=== PATIENT | male | born 1980 | race Two or more races ===

== ENCOUNTER 2017-11-16 05:38 | Inpatient (IN) | payer OTHER ==
--- NOTE | 2017-11-03 14:01 | Diagnostic Imaging Report ---
Indication: Cough Technique: 2 views of the chest Comparison: None Findings: Lungs and pleural spaces are clear. The heart size is normal. The bones are unremarkable. No significant interim change. Impression: Negative
[2017-11-03 14:02] LABS: BASOPHILS % (AUTO) 1.5 % (0.0-2.0); EOSINOPHILS % (AUTO) 4.7 % (0.0-3.0); HEMATOCRIT 50.2 % (42.0-52.0); HEMOGLOBIN 17.1 G/DL (14.2-18.0); LYMPHOCYTES % (AUTO) 43.7 % (20.0-45.0); MEAN CORPUSCULAR VOLUME 86 FL (80-99); MONOCYTES % (AUTO) 6.2 % (1.0-10.0); NEUTROPHILS % (AUTO) 43.9 % (45.0-75.0); PLATELET COUNT 222 K/UL (150-450); RED BLOOD COUNT 5.81 M/UL (4.70-6.10); RED CELL DISTRIBUTION WIDTH 10.8 % (11.6-14.8); WHITE BLOOD COUNT 5.5 K/UL (4.8-10.8)
[2017-11-03 14:28] LABS: BILIRUBIN, URINE NEGATIVE (NEGATIVE); GLUCOSE, URINE (UA) NEGATIVE (NEGATIVE); KETONES,URINE NEGATIVE (NEGATIVE); LEUKOCYTE ESTERASE ,URINE NEGATIVE (NEGATIVE); NITRITE,URINE NEGATIVE (NEGATIVE); PH,URINE 6 (4.5-8.0); PROTEIN,URINE NEGATIVE (NEGATIVE); UROBILINOGEN,URINE NORMAL MG/DL (0.0-1.0)
[2017-11-03 14:29] LABS: APPEARANCE,URINE SLIGHTLY CLOUDY; COLOR,URINE YELLOW
[2017-11-03 14:35] LABS: ALANINE AMINOTRANSFERASE 44 U/L (12-78); ALBUMIN 4.3 G/DL (3.4-5.0); ALBUMIN/GLOBULIN RATIO 1.1 (1.0-2.7); ALKALINE PHOSPHATASE 86 U/L (46-116); ANION GAP 9 mmol/L (5-15); ASPARTATE AMINO TRANSFERASE 25 U/L (15-37); BLOOD UREA NITROGEN 12 mg/dL (7-18); CALCIUM 9.4 MG/DL (8.5-10.1); CARBON DIOXIDE 29 MMOL/L (21-32); CHLORIDE 101 MMOL/L (98-107); CREATININE 0.8 MG/DL (0.55-1.30); POTASSIUM 3.9 MMOL/L (3.5-5.1); SODIUM 139 MMOL/L (136-145)
[~2017-11-16] VITALS: Ht 175.3 cm; Wt 93.0 kg
[2017-11-16] VITALS (13 sets, daily range): BP systolic 107–126; BP diastolic 61–91
[~2017-11-16 05:38] MED LIST: NKM
[2017-11-16] MEDS ORDERED: ceFAZolin sod 2 GM in D5W 110 ML IVPB SCH (07:00)
[2017-11-16] MEDS ORDERED: Lidocaine 1% 10mg/ml/EPI 0.01mg/ml 50ml INJ ONE (09:09)
[2017-11-16] MEDS ORDERED: Bupivacaine 0.5% Inj 30 ml vial INJ ONE (09:09)
[2017-11-16] MEDS ORDERED: Thrombin 5000 units TOPIC ONE (09:09)
[2017-11-16] MEDS ORDERED: Vancomycin 1gm inj IVPB ONE (09:10)
[2017-11-16] MEDS ORDERED: Gelfoam Absorbable 1gm powder pkt TOPIC ONE (09:10)
[2017-11-16] MEDS ORDERED: Thrombin 5000 units spray kit TOPIC ONE (09:10)
[2017-11-16] MEDS ORDERED: Bacitracin 50000 Units Vial ONE (09:10)
--- NOTE | 2017-11-16 09:11 | Pre-Procedure Note/Attestation ---
Pre-Procedure Note/Attestation Complete Prior to Procedure Procedure Narrative: L45 laminectomy/discectomy Indications for Procedure Pre-Operative Diagnosis: L45 HNP with radiculopathy Attestation I attest that I discussed the nature of the procedure; its benefits; risks and complications; and alternatives (and the risks and benefits of such alternatives ), prior to the procedure, with the patient (or the patient's legal assisted sales representative). I attest that, if there was a reasonable possibility of needing a blood transfusion, the patient (or the patient's legal assisted sales representative) was given the [facility] standardized written summary, pursuant to the Walt Radha Blood Safety Act ([place] Health and Safety Code # 1645, as amended). I attest that I re-evaluated the patient just prior to the surgery and that there has been no change in the patient's H&P, except as documented below: ALEXI SANABRIA Nov 16, 2017 09:11
--- NOTE | 2017-11-16 09:13 | Brief Operative Note ---
Immediate Post Operative Note Operative Note Pre-op Diagnosis: L45 HNP with radiculopathy Procedure: L45 laminectomy and discectomy Post-op Diagnosis: same as pre-op Surgeon: abhinav Club Room Attendant: faustina canas Anesthesiologist: ck Anesthesia: general Specimen: yes - disc Complications: none Condition: stable Fluids: 800 Estimated Blood Loss: minimal Drains: none Implant(s) used?: No ALEXI SANABRIA Nov 16, 2017 09:13
[2017-11-16] MEDS ORDERED: EPINEPHrine 1mg/1ml Amp ONE (09:52)
[2017-11-16] MEDS ORDERED: NS Irrig 1000ml ONE (10:00)
[2017-11-16] MEDS ORDERED: Midazolam 2mg/2ml Inj ONE (10:00)
[2017-11-16] MEDS ORDERED: Propofol 1,000mg/ 100ml btl IV ONE (10:00)
[2017-11-16] MEDS ORDERED: Zemuron 50mg/5ml Inj IV ONE (10:00)
[2017-11-16] MEDS ORDERED: Labetalol 5mg/ml 20ml vial IV ONE (10:00)
[2017-11-16] MEDS ORDERED: fentaNYL 100 mcg/2 mL IV ONE (10:00)
[2017-11-16] MEDS ORDERED: LR 1000ml ONE (10:00)
[2017-11-16] MEDS ORDERED: Sodium Chloride 10ml vial INJ ONE (10:00)
[2017-11-16] MEDS ORDERED: Sterile Water Irrig 1000ml IRRIG ONE (10:00)
[2017-11-16] MEDS ORDERED: LR 1000ml 1,000 ML IVLG SCH (11:30)
[2017-11-16] MEDS ORDERED: LORazepam Inj 2mg/ml 1ml IV PRN (11:30)
[2017-11-16] MEDS ORDERED: DiphenhydrAMINE 50mg/ml Inj IVP PRN (11:30)
[2017-11-16] MEDS ORDERED: LR 1000ml 1,000 ML IV SCH (11:30)
--- NOTE | 2017-11-16 11:38 | Anethesia Preoperative Eval ---
Anesthesia Pre-op PMH/ROS General Date of Evaluation: Nov 16, 2017 Time of Evaluation: 09:50 Anesthesiologist: Sai ASA Score: ASA 1 Mallampati Score Class I : Soft palate, uvula, fauces, pillars visible Class II: Soft palate, uvula, fauces visible Class III: Soft palate, base of uvula visible Class IV: Only hard plate visible Mallampati Classification: Class III Surgeon: Shanon Diagnosis: Disc displacement Surgical Procedure: Discectomy, laminectomy Allergies: Coded Allergies: No Known Allergies (Unverified , 11/15/17) Medications: see eMAR Past Medical History Cardiovascular: Denies: HTN, CAD, PA, valve dz, arrhythmia, other Pulmonary: Denies: asthma, COPD, GIANNI, other Gastrointestinal/Genitourinary: Denies: GERD, CRI, ESRD, other Neurologic/Psychiatric: Denies: dementia, CVA, depression/anxiety, TIA, other Endocrine: Denies: DM, hypothyroidism, steroids, other HEENT: Denies: cataract (L), cataract (R), glaucoma, [place] (L), [place] (R), other Hematology/Immune: Denies: anemia, DVT, bleeding disorder, other Musculoskeletal/Integumentary: Denies: OA, RA, DJD, DDD, edema, other PMH Narrative: Denies significant PMH PSxH Narrative: No prior surgery. Patient had several epidural steroid injections Anesthesia Pre-op Phys. Exam Physician Exam Last Vital Signs Date Time Temp Pulse Resp B/P (MAP) Pulse Ox O2 Delivery O2 Flow Rate FiO2 11/16/17 06:10 98.0 73 18 125/91 97 Room Air 98.0 Constitutional: NAD Neurologic: CN 2-12 intact Cardiovascular: RRR, no M/R/G Respiratory: CTA Gastrointestinal: S/NT/ND Airway Exam Mallampati Score: Class III MO: full ROM: full Teeth: intact Anesthesia Pre-op A/P Labs WNL Studies Pre-op Studies: EKG - NSR Risk Assessment & Plan Assessment: Healthy male for laminectomy Plan: GETA, SedLine Status Change Before Surgery: Yes Pre-Antibiotics Drug: Ancef Given Within 1 Hr of Incision: Yes Time Given: 10:15 MAGAN PAZ M.D. Nov 16, 2017 11:38
--- NOTE | 2017-11-16 11:39 | Immediate Post-Op Evaluation ---
Immediate Post-Op Evalulation Immediate Post-Op Evalulation Procedure: Laminectomy, discectomy Date of Evaluation: Nov 16, 2017 Time of Evaluation: 12:40 IV Fluids: 900 Estimated Blood Loss: 30 Blood Pressure Systolic: 124 Blood Pressure Diastolic: 73 Pulse Rate: 94 Respiratory Rate: 14 O2 Sat by Pulse Oximetry: 100 Temperature (Fahrenheit): 98.9 Pain Score (1-10): 0 Nausea: No Vomiting: No Complications No complication Patient Status: awake, patent, extubated, none Hydration Status: adequate Drug: Ancef Given Within 1 Hr of Incision: Yes Time Given: 10:15 MGAAN PAZ M.D. Nov 16, 2017 11:39
[2017-11-16] MEDS ORDERED: Meperidine 50mg/ml Inj(FOR RIGORS ONLY) IVP ONE (11:54)
[2017-11-16] MEDS ORDERED: Milk of Magnesia 30ml Ud ORAL PRN (12:00)
[2017-11-16] MEDS ORDERED: Naloxone 0.4mg/ml Inj IVP PRN (12:00)
[2017-11-16] MEDS: Hydromorphone 0.5mg/0.5ml inj IVP PRN ×2 (13:09→13:24)
--- NOTE | 2017-11-16 14:24 | Diagnostic Imaging Report ---
Indication: Right lower extremity greater than left lower extremity pain, back pain, intraoperative Technique: Intraoperative images Comparison: none Findings: Single intraoperative image demonstrates a surgical tool projecting posterior to the L5 vertebral body Impression: Intraoperative imaging, as described
[2017-11-16] MEDS ORDERED: HYDROmorphone 1mg/ml Carpuject SUBQ PRN (14:39)
[2017-11-16] MEDS ORDERED: Norco 5mg/325mg tab ORAL PRN (14:40)
[2017-11-16] MEDS ORDERED: HYDROcodone/Acetamin 7.5/325 tab ORAL PRN ×2 (14:40)
[2017-11-16] MEDS: D5 1/2NS 1,000 ML IV SCH ×2 (14:44→23:45)
[2017-11-16] MEDS: ceFAZolin sod 1 GM in NS 55 ML IV SCH (17:53)
[2017-11-16] MEDS: Docusate 100mg cap ORAL SCH (18:00)
--- NOTE | 2017-11-16 18:45 | Operative Note - Dictated ---
DATE OF OPERATION: 11/16/2017 SURGEON: Guero Claudio M.D. ANIMAL CONTROL SUPERVISOR: Lino Weller PA-C. ANESTHESIA: Walt Gibbs M.D. ANESTHESIA TYPE: General endotracheal anesthesia. PREOPERATIVE DIAGNOSIS: L4-L5 central disc herniation with bilateral right worse than left radiculopathic complaints. POSTOPERATIVE DIAGNOSIS: L4-L5 central disc herniation with bilateral right worse than left radiculopathic complaints. PROCEDURE: 1. Bilateral hemilaminectomy, medial facetectomy and discectomy at L4-L5. 2. Use of operating microscope. 3. Neurodiagnostic monitoring. ESTIMATED BLOOD LOSS: Minimal. COMPLICATIONS: None. FLUIDS: 800 mL. FINDINGS: Scar formation in the epidural space with extensive neovascularization on the right side at L4-L5. INDICATIONS: The patient is a very pleasant gentleman, sustained a work-related injury, injuring his L4-L5 level with a subligamentous rupture with bilateral lower extremity radiculopathic complaints. Initially, pain was equally on the left and right, however, now it is primarily on the right side. Surgical intervention was recommended after conservative care failed. RISK NOTE: The patient was explained in detail the risks and benefits of surgery to include, but not be limited to, those of bleeding, infection, damage to nerves, vessels, tendons, anesthetic risk, allergic reaction, aspiration, and possibly . Potential risk for discogenic collapse and need for additional surgery was discussed. The patient understood and wished to proceed. OPERATIVE PROCEDURE IN DETAIL: The patient was taken to the operative suite. After general endotracheal anesthesia was obtained, he was turned prone onto a radiolucent frame. The back was prepped and draped in usual sterile fashion. Under fluoroscopic guidance, the L4-L5 level was identified. The skin was infiltrated with Marcaine with epinephrine. A midline incision was carried out from L4-L5 level. Subperiosteal dissection was carried out. Fluoroscopically, the level was once again confirmed. At this point, self-retaining retractors were put into place. The laminotomy was then performed, first on the left and subsequently on the right with use of a rongeur as well as high-speed drill and Kerrison punches. The right side was packed off, left side was first addressed. The ligamentum flavum was undermined, elevated, and removed in a piecemeal fashion with a Kerrison rongeur. The nerve root was identified and gently retracted medially. Disc space was identified and a protrusion was identified. This was incised using a 15-blade. Then, with down pushing as well as straight and angled pituitaries, debulking of the disc herniation was achieved. Subligamentous herniation was identified and removed. Multiple passes with the pituitary removed all loose disc fragments. At this point, intradiscal irrigation removed loose debris from within the disc. This area was then packed off. Attention was turned to the right side and in an identical fashion, hemilaminectomy was performed. Ligamentum flavum removal was performed and discectomy was performed. On the right side, it should be noted that there was neovascularization as well as extensive scarring along the area of the disc herniation centrally. This was mobilized and neurolysis was achieved. At this point, the discectomy was performed identical to the contralateral side. Copious intradiscal irrigation was performed and debulking of loose disc fragments from within the disc bilaterally. At this point, we were satisfied with the decompression. Decision was made to close. FloSeal was applied. Hemostasis was achieved. The closure was performed using #1 Vicryl, subcutaneous closure using 2-0 Vicryl, Dermabond and sterile dressing were applied. At the time of this dictation, the patient was awaiting extubation. Guero Claudio M.D. DR: MAIRA JOB#: [id number] CC:
--- NOTE | 2017-11-16 18:58 | Internal Med Progress Note ---
Subjective Date of Service: Nov 16, 2017 Physician Name López,Alexandria Attending Physician Guero Claudio Current Medications Medications (Trade) Dose Ordered Sig/Venkatesh Route PRN Reason Start Time Stop Time Status Last Admin Dose Admin Acetaminophen (Tylenol) 650 mg Q4H PRN ORAL headache or temp>101 11/16/17 14:37 12/16/17 14:36 Acetaminophen/ Hydrocodone Bitart ([place] 5/325) 1 tab Q3H PRN ORAL pain score 1-3 11/16/17 14:40 11/23/17 14:39 Acetaminophen/ Hydrocodone Bitart ([place] 7.5/325) 1 tab Q3H PRN ORAL pain score 4-6 11/16/17 14:40 11/23/17 14:39 Acetaminophen/ Hydrocodone Bitart ([place] 7.5/325) 2 tab Q3H PRN ORAL pain scale 7-10 11/16/17 14:40 11/23/17 14:39 Cefazolin Sodium 1 gm/Sodium Chloride 55 ml @ 110 mls/hr Q8H IV 11/16/17 18:15 11/17/17 10:44 11/16/17 17:53 Dextrose/Sodium Chloride 1,000 ml @ 100 mls/hr Q10H IV 11/16/17 14:37 12/16/17 14:36 11/16/17 14:44 Docusate Sodium (Colace) 100 mg TWICE A DAY ORAL 11/16/17 18:00 12/16/17 17:59 Hydromorphone HCl (Dilaudid) 1 mg Q4H PRN SUBQ Mild Pain (Pain Scale 1-3) 11/16/17 14:39 11/23/17 14:38 Hydromorphone HCl (Dilaudid) 2 mg Q3H PRN SUBQ Severe Pain (Pain Scale 7-10) 11/16/17 12:00 11/23/17 11:59 11/16/17 15:09 Hydromorphone HCl (Dilaudid) 2 mg Q4H PRN SUBQ Moderate Pain (Pain Scale 4-6) 11/16/17 14:39 11/23/17 14:38 Magnesium Hydroxide (Mom) 30 ml QIDPRN PRN ORAL Constipation 11/16/17 12:00 12/16/17 11:59 Naloxone HCl (Narcan) 0.1 mg PRN PRN IVP RR<12/min, pt unarousable 11/16/17 12:00 12/16/17 11:59 Ondansetron HCl (Zofran) 4 mg Q6H PRN IVP Nausea & Vomiting 11/16/17 12:00 12/16/17 11:59 11/16/17 15:38 Prochlorperazine (Compazine) 10 mg Q6H PRN IVP Nausea & Vomiting 11/16/17 12:00 12/16/17 11:59 Allergies: Coded Allergies: No Known Allergies (Unverified , 11/15/17) ROS Limited/Unobtainable: No Constitutional: Reports: no symptoms HEENT: Reports: no symptoms Cardiovascular: Reports: no symptoms Respiratory: Reports: no symptoms Gastrointestinal/Abdominal: Reports: no symptoms Genitourinary: Reports: no symptoms Neurologic/Psychiatric: Reports: no symptoms Subjective 36 YO M admitted with herniated lumbar disc. S/P L4-5 laminectomy 11/16/18. Cover for Int Med-Dr German Objective Last Vital Signs Date Time Temp Pulse Resp B/P (MAP) Pulse Ox O2 Delivery O2 Flow Rate FiO2 11/16/17 16:00 97.6 85 19 122/76 98 Nasal Cannula 2.0 97.6 General Appearance: WD/WN, no apparent distress, alert EENT: PERRL/EOMI, normal ENT inspection, TMs normal Neck: non-tender, normal alignment, supple, normal inspection Cardiovascular: normal peripheral pulses, normal rate, regular rhythm, no gallop/murmur, no JVD Respiratory/Chest: chest wall non-tender, lungs clear, normal breath sounds, no respiratory distress, no accessory muscle use Abdomen: normal bowel sounds, non tender, soft, no organomegaly, no mass Extremities: normal range of motion, non-tender Neurologic: waist fitter II-XII grossly normal, no motor/sensory deficits Skin: normal pigmentation, warm/dry Intake and Output 11/15/17 11/16/17 19:00 07:00 # Voids 1 Assessment/Plan Problem List: (1) Low back pain (2) Obesity (BMI 30.0-34.9) (3) Herniated nucleus pulposus, L4-5 Assessment & Plan: S/P laminectomy l4-5 3/13/18. See surgery note. ALEXANDRIA LÓPEZ Nov 16, 2017 18:58
[2017-11-16] MEDS ORDERED: TransDerm Scop 1mg/72HR Patch TDERMAL ONE ×2 (19:30→19:45)
[2017-11-16] MEDS ORDERED: Cyclobenzaprine 10mg Tab ORAL PRN (19:30)
[2017-11-16] MEDS ORDERED: TransDerm Scop 1mg/72HR Patch TDERMAL PRN (19:30)
[2017-11-16] MEDS: HYDROmorphone 1mg/ml Carpuject SUBQ PRN ×2 (20:01→23:36)
[2017-11-17 00:21] VITALS: BP 120/60
--- NOTE | 2017-11-17 00:45 | Consultation ---
DATE OF CONSULTATION: 11/16/2017 CONSULTING PHYSICIAN: William Benjamin M.D. REFERRING PHYSICIAN: Guero Claudio M.D. REASON FOR CONSULT: Acute pain consult. Dear Dr. Guero Claudio, Thank you kindly for consulting me to evaluate and render an opinion as to how to proceed in the management of the patient's acute postoperative lumbar spine pain after lumbar spine surgery today. The patient is a 36-year-old gentleman, who injured his back in a work-related injury. Today, the patient underwent a bilateral decompressive lumbar spine surgery and complained of severe pain and postoperative nausea and vomiting, PONV. The patient was given multiple antiemetics including Zofran along with parenteral Dilaudid, but still complained of significant pain and vomiting symptoms. At this point, you consulted me for acute pain consultation. I saw the patient at the bedside with yourself, Dr. Claudio. I performed a detailed history and physical examination. I have reviewed the medical record in detail to devise the following analgesic plan. I spent over 75 minutes in consultation with an additional 30 minutes in medical record review. Multiple records were reviewed from today's surgery including utilization, review, and surgical authorization by [employer] Review for [employer], dated 07/19/2017 authorizing lumbar spine surgery as certified. Further record review included preoperative history physical by Dr. Luis Fernando German on 11/03/2017 along with diagnostic testing and laboratory studies. I reviewed multiple records from today's date of surgery at [facility] on 11/16/2017 including consent for surgical treatment, consent for anesthesia, consent for blood products, medication administration record, medication reconciliation order form, PACU record, PACU orders, anesthesia record, pre and post anesthesia evaluation record, postoperative spine surgical orders, postoperative surgery report by Dr. Claudio, guidelines for prophylactic antibiotics, guidelines for DVT prophylaxis, initial nursing assessment, and 24-hour medical surgical flow sheet. PAST MEDICAL HISTORY: 1. Acute postoperative lumbar spine pain, status post lumbar spine surgery by Dr. Guero Claudio in November 2017. 2. Work-related injury. 3. Postoperative nausea and vomiting, PONV. PAST SURGICAL HISTORY: None prior. MEDICATIONS AT HOME: Extra-strength Tylenol and [place]. The patient has tolerated muscle relaxants in the past. ALLERGIES: No known drug allergies. SOCIAL HISTORY: The patient denies tobacco, alcohol, or illicit drug use. FAMILY HISTORY: Coronary artery disease. REVIEW OF SYSTEMS: Per Dr. German. PHYSICAL EXAMINATION: GENERAL: Age 36, height 5 feet 9 inches, weight 207 pounds, and body mass index 31. The patient appears in moderate distress due to severe nausea and lumbar spine pain. The patient is lying in the left lateral decubitus/ position. I saw the patient at the bedside with the nurse RN, Jassi. VITAL SIGNS: Afebrile, pulse 85, respirations 19, blood pressure 122/76, and oxygen saturation 98% on supplemental oxygen. HEENT: Normocephalic and atraumatic. Extraocular muscles intact. Pupils are equal, round, and accommodative. No nuchal rigidity. No Blackmon's palsy. No thyromegaly. No carotid bruits. CHEST: Clear to auscultation. HEART: Regular rate and rhythm. BACK: Lumbar spine shows dry dressing. Moving all extremities x4. NEUROLOGIC: A detailed neurologic exam per Dr. Claudio at the bedside. GENITOURINARY: Deferred. DIAGNOSTIC TESTING: Shows preoperative chest x-ray, no acute cardiopulmonary disease on 11/03/2017. A 12-lead EKG shows normal sinus rhythm with ventricular rate 63. LABORATORY DATA: Laboratory studies on 11/03/2017 shows sodium 139, potassium 3.9, chloride 101, bicarb 29, BUN 12, creatinine 0.8, glucose 87, calcium 9.4, and phosphorus 4.0. Total bilirubin 1.0. AST 125 and ALT 24. Total protein 8.2. Albumin 4.3. Alkaline phosphatase 86. INR 1.0 and PTT 27. White count 6, hematocrit 50, and platelets 222,000. Urinalysis negative. IMPRESSION: 1. Acute postoperative lumbar spine pain, status post lumbar spine surgery by Dr. Guero Claudio in November 2017. 2. Work-related injury. 3. Postoperative nausea and vomiting, PONV. TREATMENT AND RECOMMENDATIONS: I would first prioritize treating the patient's severe nausea symptoms. He denies glaucoma symptoms. Therefore, I have ordered a scopolamine patch 1 mg for better baseline nausea prophylaxis. I have ordered one time dose of Phenergan 12.5 mg intramuscularly to be given now. I have increased the frequency of the Zofran to p.o. 4 mg intravenously every 4 hours p.r.n. I have also switched the Dilaudid parenteral injection through the subcutaneous route to help reduce nausea symptoms. I have made available 1 mg subcutaneously every three hours of Dilaudid for severe breakthrough pain. The patient has tolerated [place] in the past, so I have ordered [place] 10/325 one tablet orally every three hours p.r.n. I have also added dose of Flexeril 10 mg in case of muscle spasm symptoms. The patient has developed stomach upset from using NSAIDs in the past. I have placed him on Protonix 40 mg for GI ulcer prophylaxis. I have also ordered a p.r.n. dose of Mylanta 30 mL q.6 hours in case of any GERD symptom exacerbation. I have ordered Benadryl 25 mg q.6 hours in case of any itching complaints. I have also ordered Colace b.i.d. as a stool softener to promote bowel regularity and I have ordered p.r.n. laxative dose of milk of magnesia 30 mL p.r.n. I will order incentive spirometer to encourage good pulmonary toilet. I will defer DVT prophylaxis to the surgeon. For outpatient usage, I have provided prescription for 50 tablets of [place] 10/325 along with a quantity of 25 tablets of Flexeril 10 mg. William Benjamin M.D. DR: KULDEEP JOB#: [id number] CC:
[2017-11-17] MEDS: ceFAZolin sod 1 GM in NS 55 ML IV SCH ×2 (02:27→09:49)
[2017-11-17] MEDS: HYDROmorphone 1mg/ml Carpuject SUBQ PRN ×2 (04:48→08:21)
[2017-11-17 04:52] VITALS: BP 109/62
[2017-11-17 08:00] VITALS: BP 110/70
[2017-11-17 08:04] LABS: BASOPHILS % (AUTO) 0.7 % (0.0-2.0); EOSINOPHILS % (AUTO) 0.5 % (0.0-3.0); HEMATOCRIT 40.8 % (42.0-52.0); HEMOGLOBIN 14.2 G/DL (14.2-18.0); LYMPHOCYTES % (AUTO) 16.7 % (20.0-45.0); MEAN CORPUSCULAR VOLUME 87 FL (80-99); MONOCYTES % (AUTO) 9.4 % (1.0-10.0); NEUTROPHILS % (AUTO) 72.8 % (45.0-75.0); PLATELET COUNT 178 K/UL (150-450); RED BLOOD COUNT 4.69 M/UL (4.70-6.10); RED CELL DISTRIBUTION WIDTH 10.8 % (11.6-14.8); WHITE BLOOD COUNT 9.9 K/UL (4.8-10.8)
[2017-11-17 08:16] LABS: ANION GAP 3 mmol/L (5-15); BLOOD UREA NITROGEN 7 mg/dL (7-18); CALCIUM 7.9 MG/DL (8.5-10.1); CARBON DIOXIDE 30 MMOL/L (21-32); CHLORIDE 104 MMOL/L (98-107); CREATININE 0.7 MG/DL (0.55-1.30); POTASSIUM 3.2 MMOL/L (3.5-5.1); SODIUM 137 MMOL/L (136-145)
[2017-11-17] MEDS: Docusate 100mg cap ORAL SCH ×2 (08:21→17:31)
[2017-11-17] MEDS: D5 1/2NS 1,000 ML IV SCH (09:34)
[2017-11-17] MEDS: HYDROcodone/Acetamin 10/325 tab ORAL PRN ×2 (09:53→16:42)
--- NOTE | 2017-11-17 11:39 | 48 Hour Post Anesthesia Eval ---
Post Anesthesia Evaluation Procedure: Laminectomy, discectomy Date of Evaluation: Nov 17, 2017 Time of Evaluation: 11:37 Blood Pressure Systolic: 110 0: 70 Pulse Rate: 97 Respiratory Rate: 18 Temperature (Fahrenheit): 99.4 O2 Sat by Pulse Oximetry: 97 Airway: patent Nausea: No Vomiting: No Pain Intensity: 2 Hydration Status: adequate Cardiopulmonary Status: Stable Mental Status/LOC: patient returned to baseline Follow-up Care/Observations: 0 Post-Anesthesia Complications: 0 Follow-up care needed: N/A Alex Rodriguez MD Nov 17, 2017 11:39
[2017-11-17 12:00] VITALS: BP 102/73
--- NOTE | 2017-11-17 13:19 | Orthopedic Spine Progress Note ---
Ortho Spine - Progress Note Subjective Symptoms: c/o post-op back pain, improved - as compared to pre-op Objective Vital Signs: Last 24 Hour Vital Signs Date Time Temp Pulse Resp B/P (MAP) Pulse Ox O2 Delivery O2 Flow Rate FiO2 11/17/17 11:39 210.9 97 18 97 11/17/17 10:52 99.4 11/17/17 09:53 99.4 11/17/17 09:42 99.4 11/17/17 08:51 100.9 11/17/17 08:43 100.9 11/17/17 08:21 97.4 11/17/17 08:00 100.2 97 18 110/70 97 100.2 11/17/17 04:52 97.4 85 17 109/62 98 97.4 11/17/17 00:21 97.5 61 20 120/60 99 97.5 11/16/17 23:36 98.1 11/16/17 20:12 97.2 65 20 113/63 99 97.2 11/16/17 16:00 97.6 85 19 122/76 98 Nasal Cannula 2.0 97.6 11/16/17 15:39 98.5 11/16/17 15:09 98.5 11/16/17 13:54 98.5 11/16/17 13:35 97.4 75 18 126/76 98 Nasal Cannula 2.0 97.4 11/16/17 13:30 98.5 84 17 116/61 100 Nasal Cannula 2.0 98.5 11/16/17 13:24 98.9 11/16/17 13:20 83 18 114/61 100 Nasal Cannula 2.0 I&O: Intake and Output 11/16/17 11/17/17 19:00 07:00 Intake Total 1405 ml 1900 ml Output Total 180 ml Balance 1225 ml 1900 ml Intake Oral 200 ml 600 ml IV Total 1205 ml 1300 ml Output Emesis 150 ml Estimated Blood Loss 30 ml # Voids 3 Wound: clean, intact Drains: none Assessment Procedure Performed: L45 laminectomy and discectomy Plan Plan: PT, d/c antibiotics, discharge plan ALEXI SANABRIA Nov 17, 2017 13:18
--- NOTE | 2017-11-17 13:24 | Internal Med Progress Note ---
Subjective Date of Service: Nov 17, 2017 Physician Name López,Alexandria Attending Physician Guero Claudio Current Medications Medications (Trade) Dose Ordered Sig/Venkatesh Route PRN Reason Start Time Stop Time Status Last Admin Dose Admin Acetaminophen (Tylenol) 650 mg Q4H PRN ORAL headache or temp>101 11/16/17 14:37 12/16/17 14:36 11/17/17 08:43 Acetaminophen/ Hydrocodone Bitart ([place] 10/325) 1 tab Q3HR PRN ORAL Pain Scale (3-5) 11/16/17 19:30 11/23/17 19:29 11/17/17 09:53 Al Hydroxide/Mg Hydroxide (Mylanta) 30 ml Q6H PRN ORAL GERD 11/16/17 19:30 12/16/17 19:29 Cetylpyridinium Chloride (Cepacol) 1 lozg EVERY 2 HOURS PRN CANDY SORE THROAT 11/16/17 19:15 12/16/17 19:14 Cyclobenzaprine HCl (Flexeril) 10 mg Q8HR PRN ORAL Muscle Spasm 11/16/17 19:30 12/16/17 19:29 Dextrose/Sodium Chloride 1,000 ml @ 100 mls/hr Q10H IV 11/16/17 14:37 12/16/17 14:36 11/17/17 09:34 Diphenhydramine HCl (Benadryl) 25 mg Q6H PRN ORAL Itching 11/16/17 19:30 12/16/17 19:29 Docusate Sodium (Colace) 100 mg TWICE A DAY ORAL 11/16/17 18:00 12/16/17 17:59 11/17/17 08:21 Hydromorphone HCl (Dilaudid) 1 mg Q3HR PRN SUBQ Severe Breakthru Pain (>7) 11/16/17 19:30 11/23/17 19:29 11/17/17 08:21 Magnesium Hydroxide (Mom) 30 ml QIDPRN PRN ORAL Constipation 11/16/17 12:00 12/16/17 11:59 Naloxone HCl (Narcan) 0.1 mg PRN PRN IVP RR<12/min, pt unarousable 11/16/17 12:00 12/16/17 11:59 Ondansetron HCl (Zofran) 4 mg Q4HR PRN IVP Nausea & Vomiting 11/16/17 19:30 12/16/17 19:29 Pantoprazole (Protonix) 40 mg BEDTIME ORAL 11/16/17 21:00 12/16/17 20:59 11/16/17 21:51 Promethazine HCl (Phenergan) 12.5 mg Q8HR PRN IM Nausea & Vomiting 11/16/17 19:30 12/16/17 19:29 Allergies: Coded Allergies: No Known Allergies (Unverified , 11/15/17) ROS Limited/Unobtainable: No Constitutional: Reports: no symptoms HEENT: Reports: no symptoms Cardiovascular: Reports: no symptoms Respiratory: Reports: no symptoms Gastrointestinal/Abdominal: Reports: no symptoms Genitourinary: Reports: no symptoms Neurologic/Psychiatric: Reports: no symptoms Subjective 36 YO M admitted with herniated lumbar disc. S/P L4-5 laminectomy 11/16/18. Cover for Int Eduardo-Dr German Objective Last Vital Signs Date Time Temp Pulse Resp B/P (MAP) Pulse Ox O2 Delivery O2 Flow Rate FiO2 11/17/17 11:39 210.9 97 18 97 11/17/17 08:00 110/70 11/16/17 16:00 Nasal Cannula 2.0 Laboratory Tests Test 11/17/17 06:22 White Blood Count 9.9 K/UL (4.8-10.8) Red Blood Count 4.69 M/UL (4.70-6.10) L Hemoglobin 14.2 G/DL (14.2-18.0) Hematocrit 40.8 % (42.0-52.0) L Mean Corpuscular Volume 87 FL (80-99) Mean Corpuscular Hemoglobin 30.3 PG (27.0-31.0) Mean Corpuscular Hemoglobin Concent 34.7 G/DL (32.0-36.0) Red Cell Distribution Width 10.8 % (11.6-14.8) L Platelet Count 178 K/UL (150-450) Mean Platelet Volume 11.2 FL (6.5-10.1) H Neutrophils (%) (Auto) 72.8 % (45.0-75.0) Lymphocytes (%) (Auto) 16.7 % (20.0-45.0) L Monocytes (%) (Auto) 9.4 % (1.0-10.0) Eosinophils (%) (Auto) 0.5 % (0.0-3.0) Basophils (%) (Auto) 0.7 % (0.0-2.0) Sodium Level 137 MMOL/L (136-145) Potassium Level 3.2 MMOL/L (3.5-5.1) L Chloride Level 104 MMOL/L (98-107) Carbon Dioxide Level 30 MMOL/L (21-32) Anion Gap 3 mmol/L (5-15) L Blood Urea Nitrogen 7 mg/dL (7-18) Creatinine 0.7 MG/DL (0.55-1.30) Estimat Glomerular Filtration Rate > 60 mL/min (>60) Glucose Level 121 MG/DL (74-106) H Calcium Level 7.9 MG/DL (8.5-10.1) L Intake and Output 11/16/17 11/17/17 19:00 07:00 Intake Total 1405 ml 1900 ml Output Total 180 ml Balance 1225 ml 1900 ml Intake Oral 200 ml 600 ml IV Total 1205 ml 1300 ml Output Emesis 150 ml Estimated Blood Loss 30 ml # Voids 3 Objective General Appearance: WD/WN, no apparent distress, alert EENT: PERRL/EOMI, normal ENT inspection, TMs normal Neck: non-tender, normal alignment, supple, normal inspection Cardiovascular: normal peripheral pulses, normal rate, regular rhythm, no gallop/murmur, no JVD Respiratory/Chest: chest wall non-tender, lungs clear, normal breath sounds, no respiratory distress, no accessory muscle use Abdomen: normal bowel sounds, non tender, soft, no organomegaly, no mass Extremities: normal range of motion, non-tender 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 See surgery note. ALEXANDRIA LÓPEZ Nov 17, 2017 13:24
[2017-11-17 16:00] VITALS: BP 120/68
[2017-11-17] MEDS ORDERED: CYCLOBENZAPRINE10 MG ORAL (16:29)
[2017-11-17] MEDS ORDERED: NORCO 10-325 T1 EACH ORAL (16:29)
[2017-11-17] MEDS ORDERED: Tubing IV Secondary IV ONE (18:24)
[2017-11-17] MEDS ORDERED: D5 1/2NS 1000ml IV ONE (18:24)
--- NOTE | 2017-11-17 19:30 | Progress Note ---
DATE: 11/17/2017 ACUTE PAIN MANAGEMENT PHYSICIAN PROGRESS NOTE MEDICATIONS: Medication administration record reviewed. Medications include IV fluids, Colace, and Protonix. P.r.n. medications include Narcan, Tylenol, milk of magnesia, Cepacol, Benadryl, Mylanta, Phenergan, Zofran, Dilaudid, [place], and Flexeril. LABORATORY STUDIES: From this morning, 11/17/2017, shows normal white count 10, hematocrit 41, and platelets 178. Sodium 137, potassium 3.2, chloride 104, bicarbonate 30, BUN 7, creatinine 0.7, calcium 7.9, and glucose 121. OBJECTIVE: VITAL SIGNS: Afebrile, pulse 87, respirations 20, blood pressure 102/73, and oxygen saturation 98% on room air. Pain level is 5/10 on the visual analog pain scale. I saw the patient at bedside with the surgeon, Dr. Guero Claudio. I discussed the case with the nurse RN, Nidhi. I provided prescription for Flexeril 25 tablets and [place] 50 tablets for outpatient usage. The patient has been able to ambulate with the physical therapist. He has been advancing his diet without any nausea symptoms. He is swallowing, breathing, and phonating within normal limits. He is alert and oriented x3. He is moving all extremities x4 with 5/5 dorsiflexion and 5/5 plantar flexion at the bilateral lower extremities and calves. Dr. Claudio performed the neurologic exam at the patient's bedside and was pleased with the surgical results. The patient is breathing comfortably on room air. Incentive spirometer was ordered for good pulmonary toilet. The patient has been alternating doses of breakthrough Dilaudid with the oral hydrocodone here in the hospital for pain control. The pain control seems to be adequate. The patient will have good support at home with family. I agree with Dr. Claudio for a discharge trial home at this time. The patient will follow up with Dr. Claudio in his outpatient surgical clinic in approximately two weeks. William Benjamin M.D. DR: Tonya JOB#: [id number] CC:
--- NOTE | 2017-11-18 14:25 | Discharge Summary ---
Discharge Summary Hospital Course Date of Admission Nov 16, 2017 at 05:38 Date of Discharge Nov 17, 2017 at 18:25 Admitting Diagnosis HPI Leander Foreman is a 36 year old male who was admitted on Nov 16, 2017 at 05:38 for Intervertebral Disc Displacement Hospital Course [id number] Discharge Discharge Disposition Patient was discharged to Home (01) Discharge Diagnoses: Johnna Sheppard NP Nov 18, 2017 14:25
--- NOTE | 2017-11-19 04:15 | Discharge Summary 2 SIG ---
DATE OF ADMISSION: 11/16/2017 DATE OF DISCHARGE: 11/17/2017 CONSULTANTS: 1. William Benjamin M.D. 2. John Daniels M.D. BRIEF HOSPITAL COURSE: The patient is a 36-year-old male, who had injury in 2009 and sustained a work-related injury injuring his L4-L5 level with subligamentous rupture and bilateral lower extremity radiculopathy. Initially, pain was equally on the left and right, however, it has progressed primarily on the right side. He had failed conservative management and opted for surgical treatment. He was admitted on 11/16/2017 and underwent bilateral hemilaminectomy, medial facetectomy, and diskectomy at level of L4-L5. He tolerated the procedure well and postoperatively was seen by Dr. William Benjamin for pain management. He was given Zofran p.r.n. for vomiting and scopolamine patch. Dilaudid was switched to subcutaneous every 3 hours p.r.n. severe pain and was given [place] p.o. He was given Protonix for GI prophylaxis and SCDs for DVT prophylaxis. He was encouraged use of incentive spirometry. He was seen by Physical Therapy. His potassium was repleted. He was ambulating well with physical therapy and was subsequently discharged home with front wheel walker. FINAL DIAGNOSIS: L4-L5 central disc herniation, status post bilateral hemilaminectomy, medial facetectomy, and diskectomy at L4-L5. Please refer to operative report. DISPOSITION: The patient was discharged home. DISCHARGE MEDICATIONS: Continue with [place] p.r.n. and Flexeril 10 mg b.i.d. as needed. DISCHARGE INSTRUCTIONS: Follow up as outpatient. Guero Claudio M.D. I have been assigned to dictate discharge summary on this account and I was not involved in the patient's management. Johnna Sheppard N.P. DR: RITESH JOB#: [id number] CC: GLORIA
== END 2017-11-17 18:25 | disposition home or self-care (01) | DRG 520 ==
LOC: SDSOVERFLO 05:38 → 3E 13:50
PROC: 0SB20ZZ Excision of Lumbar Vertebral Disc, Open Approach (ICD-10-PCS; principal; 2017-11-16 12:00)
DX: M51.16 Intervertebral disc disorders with radiculopathy, lumbar region (principal); E66.9 Obesity, unspecified; Z82.49 Family history of ischemic heart disease and other diseases of the circulatory system; R11.2 Nausea with vomiting, unspecified
CPT/HCPCS: 36415; 71046; 72020; 76000; 80048; 80053; 81003; 83735; 84100; 85025; 85610; 85730; 86850; 86900; 86901; 87081; 87086; 94003; 94150; J2250; J2405; J8499